=== PATIENT | female | born 1995 | race Caucasian/White ===

== ENCOUNTER 2022-11-03 12:50 | Emergency (ER) | payer OTHER ==
[~2022-11-03] VITALS: Ht 162.6 cm; Wt 90.7 kg
[~2022-11-03 12:50] MED LIST: TUSSI PRES-B L120 M1 PO; ZITHROMAX TRI-500 MG PO
[2022-11-03] MEDS ORDERED: COZAAR25 MG PO (13:44)
[2022-11-03] MEDS ORDERED: BUPROPION XL150 MG PO (13:45)
[2022-11-03] MEDS ORDERED: CLONAZEPAM1 MG PO (13:45)
[2022-11-03] MEDS ORDERED: ESCITALOPRAM OX20 MG PO (13:47)
[2022-11-03] MEDS ORDERED: METFORMIN HCL500 M3 PO (13:48)
[2022-11-03] MEDS ORDERED: RESTORIL30 MG PO (13:48)
== END 2022-11-03 20:15 | disposition home or self-care (01) ==
LOC: ER 12:50
DX: R07.89 Other chest pain (principal); Z86.2 Personal history of diseases of the blood and blood-forming organs and certain disorders involving the immune mechanism; R11.10 Vomiting, unspecified; Z20.822 Contact with and (suspected) exposure to COVID-19

== ENCOUNTER 2023-04-13 00:27 | Emergency (ER) | payer OTHER ==
[~2023-04-13] VITALS: Ht 162.6 cm; Wt 90.7 kg
[~2023-04-13 00:27] MED LIST changes: +BUPROPION XL150 MG PO; +CLONAZEPAM1 MG PO; +COZAAR25 MG PO; +ESCITALOPRAM OX20 MG PO; +METFORMIN HCL500 M3 PO; +RESTORIL30 MG PO
[2023-04-13] MEDS ORDERED: AMLODIPINE-OLM1 EACH PO (01:07)
[2023-04-13 03:17] LABS: HEMATOCRIT 43.5 % (36.0-45.00); HEMOGLOBIN 14.6 g/dL (12.0-15.00); MEAN CORPUSCULAR HEMOGLOBIN 28.9 pg (27.00-32.0); MEAN CORPUSCULAR HGB CONC 33.6 g/dl (32.0-36.0); PLATELET COUNT 442 K/uL (150-450); RED BLOOD COUNT 5.06 M/uL (4.00-6.00); RED CELL DISTRIBUTION WIDTH 14.2 % (11.5-14.5)
[2023-04-13 03:30] LABS: ALBUMIN 3.7 gm/dL (3.4-5.0); BILIRUBIN TOTAL 0.67 mg/dL (0.3-1.2); CALCIUM 9.4 mg/dL (8.5-10.1); CREATININE SERUM 0.75 mg/dL (0.55-1.02); GFR 92.69; GLOBULINA 4.2 G/DL (2.4-3.5); POTASSIUM 3.91 mEq/L (3.5-5.1); TOTAL PROTEIN 7.9 gm/dL (6.4-8.2)
[2023-04-13] MEDS ORDERED: LOSARTAN-HCTZ1 EAC1 PO (05:07)
== END 2023-04-13 05:25 | disposition home or self-care (01) ==
LOC: ER 00:27
PROVIDERS: General Practice
DX: R53.81 Other malaise (principal); I10 Essential (primary) hypertension; E11.9 Type 2 diabetes mellitus without complications; Z79.84 Long term (current) use of oral hypoglycemic drugs

== ENCOUNTER 2023-05-02 23:26 | Emergency (ER) | payer OTHER ==
[~2023-05-02] VITALS: Ht 162.6 cm; Wt 90.7 kg
[~2023-05-02 23:26] MED LIST changes: +AMLODIPINE-OLM1 EACH PO; +LOSARTAN-HCTZ1 EAC1 PO
== END 2023-05-03 03:56 | disposition home or self-care (01) ==
LOC: ER 23:27
DX: L02.429 Furuncle of limb, unspecified (principal)

== ENCOUNTER 2023-07-24 13:06 | Emergency (ER) | payer OTHER ==
[~2023-07-24] VITALS: Ht 162.6 cm; Wt 86.2 kg
[2023-07-24] MEDS ORDERED: 0.9 % SODIUM CHLORIDE 1,000 ML IV STA (14:58)
[2023-07-24 15:53] LABS: HEMATOCRIT 42.4 % (36.0-45.00); HEMOGLOBIN 14.2 g/dL (12.0-15.00); MEAN CELL VOLUME 86.8 fL (80.00-100.00); MEAN CORPUSCULAR HEMOGLOBIN 29.2 pg (27.00-32.0); MEAN CORPUSCULAR HGB CONC 33.6 g/dl (32.0-36.0); PLATELET COUNT 417 K/uL (150-450); RED BLOOD COUNT 4.89 M/uL (4.00-6.00); RED CELL DISTRIBUTION WIDTH 15.2 % (11.5-14.5)
[2023-07-24 16:34] LABS: CALCIUM 9.4 mg/dL (8.5-10.1); CREATININE SERUM 0.72 mg/dL (0.55-1.02); GFR 97.17; POTASSIUM 3.89 mEq/L (3.5-5.1)
== END 2023-07-24 22:01 | disposition home or self-care (01) ==
LOC: ER 13:07
PROVIDERS: Emergency Medicine
DX: E11.9 Type 2 diabetes mellitus without complications (principal); Z79.84 Long term (current) use of oral hypoglycemic drugs; F32.89 Other specified depressive episodes